=== PATIENT | male | born 1960 | race Caucasian/White ===

== ENCOUNTER 2020-09-17 16:22 | Inpatient (IN) | payer BC, OTHER ==
[~2020-09-17] VITALS: Ht 172.7 cm; Wt 86.4 kg
[~2020-09-17 16:22] MED LIST: ADV50100 IH; ALBU18HF2 IH; DOXY-8 PO; NO HOME MEDS; PRED20TA PO
[2020-09-17 17:01] LABS: BASOPHILS % (AUTO) 0.4 % (0-1); EOSINOPHILS % (AUTO) 0 % (0-6); HEMATOCRIT 42.3 % (42.0-52.0); HEMOGLOBIN 14.4 g/dl (14.0-17.9); LYMPHOCYTES # (AUTO) 0.9 X10'3 (1.1-4.8); LYMPHOCYTES % (AUTO) 19.2 % (21-51); MEAN CORPUSCULAR HEMOGLOBIN 29.4 PG (27.0-31.0); MEAN CORPUSCULAR HGB CONC 34.1 g/dL (33.0-36.5); MEAN CORPUSCULAR VOLUME 86.4 FL (78-98); MEAN PLATELET VOLUME 7.4 FL (7.4-10.4); MONOCYTES # (AUTO) 0.5 X10'3 (0-0.9); MONOCYTES % (AUTO) 11.6 % (2-12); NEUTROPHILS # (AUTO) 3.1 X10'3 (1.8-7.7); NEUTROPHILS % (AUTO) 68.8 % (42-75); PLATELET COUNT 257 X10'3 (140-440); RED CELL DISTRIBUTION WIDTH 12.9 % (11.5-14.5); WHITE BLOOD COUNT 4.5 X10'3 (4.5-11.0)
[2020-09-17 17:16] LABS: ALANINE AMINOTRANSFERASE 37 U/L (12-78); ALBUMIN 3.5 G/DL (3.4-5.0); ALBUMIN/GLOBULIN RATIO 0.8 (1.1-1.5); ALKALINE PHOSPHATASE 73 IU/L (46-116); ANION GAP 5 (8-16); ASPARTATE AMINO TRANSFERASE 50 U/L (10-37); BILIRUBIN,TOTAL 0.3 MG/DL (0.1-1.0); BLOOD UREA NITROGEN 20 MG/DL (7-18); BUN/CREATININE RATIO 20.2 (5.4-32.0); CALCIUM 8.9 MG/DL (8.5-10.1); CHLORIDE 99 MMOL/L (99-107); CREATININE 0.99 MG/DL (0.60-1.10); GLUCOSE 116 MG/DL (70-104); POTASSIUM 3.7 MMOL/L (3.5-5.1); SODIUM 137 MMOL/L (135-145); TOTAL PROTEIN 7.7 G/DL (6.4-8.2); eGFR 77 ML/MIN
[2020-09-17] MEDS ORDERED: normal saline 1000ML IV soln IVB ONE (17:35)
[2020-09-17] MEDS ORDERED: dexamethasone 4mg/ml inj IV SCH (17:50)
[2020-09-17] MEDS ORDERED: dexamethasone 4mg/ml inj IV ONE (17:50)
[2020-09-17] MEDS ORDERED: acetaminophen 325mg tablet PO PRN (18:05)
[2020-09-17] MEDS ORDERED: mag hydrox/Alum hydrox/simeth 30ml oral suspension PO PRN (18:05)
[2020-09-17] MEDS ORDERED: magnesium hydroxide 30ml (MOM) UD suspension PO PRN (18:05)
[2020-09-17] MEDS ORDERED: ALBUTEROL INHALER 1 PUFF/90 MCG INHALER IH PRN (18:05)
[2020-09-17] MEDS ORDERED: ondansetron/PF 4mg/2ml inj IV PRN (18:05)
[2020-09-17 18:06] LABS: C-REACTIVE PROTEIN 9.26 MG/DL (0.0-0.5)
[2020-09-17 18:07] LABS: D-DIMER 0.38 MG/L FEU (0-0.50)
[2020-09-17] MEDS ORDERED: iohexol 350MG/ML 100ml bottle IV ONE (18:09)
[2020-09-17] MEDS ORDERED: BUDE10.2 INH (18:10)
[2020-09-17] MEDS ORDERED: TIOT18CA3 IH (18:11)
[2020-09-17] MEDS ORDERED: REMDESIVIR 100MG inj. 200 MG in normal saline 100ml IV soln 100 ML IV ONE (18:25)
--- NOTE | 2020-09-17 19:52 | NUR ---
Patient in bed, alert and oriented x 3 on nasal cannula. No acute signs of distress. Patient updated on plan of care and admission
[2020-09-17] MEDS: enoxaparin 40mg/0.4ml syringe SUBCUT SCH (19:54)
[2020-09-17] MEDS: Symbicort 160-4.5 Mcg Inhaler IH SCH (20:00)
[2020-09-17] MEDS: ALBUTEROL INHALER 1 PUFF/90 MCG INHALER IH SCH (20:00)
--- NOTE | 2020-09-17 20:06 | NUR ---
Report given to MAYRA Ybarra.
[2020-09-17 20:50] VITALS: BP 117/63
--- NOTE | 2020-09-17 20:50 | NUR ---
Report taken from Denisha NUNEZ in ER.. Patient arrived to the floor on a gurney with Anti-viral running through IV and NC ON with a flow of 8L, which I immediately changed to 6L. Patient brought with him his wallet, glasses, and keys. He demanded that these items stay with him. He also had a white plastic bag with his shirt, jacket, pants, socks and shoes. These items were put in patients assigned closet in room. He is currently in stable condition, will cont.. to monitor.
[2020-09-17 22:00] VITALS: BP 122/68
[2020-09-17] MEDS: dexamethasone inj 6 MG in normal saline 50ml IV soln 50 ML IV SCH (23:46)
[2020-09-18 02:00] VITALS: BP 114/62
[2020-09-18] MEDS: ALBUTEROL INHALER 1 PUFF/90 MCG INHALER IH SCH ×4 (02:08→20:00)
[2020-09-18 06:00] VITALS: BP 109/56
--- NOTE | 2020-09-18 06:24 | NUR ---
Problems reprioritized. Patient report given, questions answered & plan of care reviewed with Patricia NUNEZ.
[2020-09-18 06:47] LABS: BASOPHILS % (AUTO) 0.2 % (0-1); EOSINOPHILS % (AUTO) 0 % (0-6); HEMATOCRIT 35.4 % (42.0-52.0); HEMOGLOBIN 12.1 g/dl (14.0-17.9); LYMPHOCYTES # (AUTO) 0.4 X10'3 (1.1-4.8); LYMPHOCYTES % (AUTO) 18.2 % (21-51); MEAN CORPUSCULAR HEMOGLOBIN 29.4 PG (27.0-31.0); MEAN CORPUSCULAR HGB CONC 34.2 g/dL (33.0-36.5); MEAN PLATELET VOLUME 7.5 FL (7.4-10.4); MONOCYTES # (AUTO) 0.2 X10'3 (0-0.9); MONOCYTES % (AUTO) 6.6 % (2-12); NEUTROPHILS # (AUTO) 1.8 X10'3 (1.8-7.7); PLATELET COUNT 241 X10'3 (140-440); RED BLOOD COUNT 4.11 X10'6 (4.70-6.10); RED CELL DISTRIBUTION WIDTH 13.1 % (11.5-14.5); WHITE BLOOD COUNT 2.3 X10'3 (4.5-11.0)
[2020-09-18 06:58] LABS: ALBUMIN 2.8 G/DL (3.4-5.0); ANION GAP 7 (8-16); BLOOD UREA NITROGEN 21 MG/DL (7-18); BUN/CREATININE RATIO 25.3 (5.4-32.0); CALCIUM 8.8 MG/DL (8.5-10.1); CHLORIDE 103 MMOL/L (99-107); CREATININE 0.83 MG/DL (0.60-1.10); GLUCOSE 133 MG/DL (70-104); POTASSIUM 4.2 MMOL/L (3.5-5.1); SODIUM 139 MMOL/L (135-145); TOTAL CARBON DIOXIDE 29.2 MMOL/L (24-32); eGFR > 90 ML/MIN
[2020-09-18 07:25] LABS: TOTAL CELLS COUNTED 100
[2020-09-18 07:26] LABS: MICROCYTOSIS 1+; PLATELET ESTIMATE NORMAL
[2020-09-18] MEDS: dexamethasone inj 6 MG in normal saline 50ml IV soln 50 ML IV SCH ×2 (07:59→20:02)
[2020-09-18] MEDS: enoxaparin 40mg/0.4ml syringe SUBCUT SCH ×2 (08:00→20:00)
[2020-09-18 11:00] VITALS: BP 114/62
[2020-09-18 15:00] VITALS: BP 127/72
--- NOTE | 2020-09-18 18:00 | NUR ---
Patient in room PCU 3020. I have received report from Patricia NUNEZ and had the opportunity to ask questions and assume patient care. Pt resting in bed. NAD noted, RR even and unlabored. Safety precautions in place, will continue to monitor.
[2020-09-18 19:58] VITALS: BP 132/77
[2020-09-18] MEDS: REMDESIVIR 100MG inj. 100 MG in normal saline 100ml IV soln 100 ML IV SCH (20:02)
[2020-09-18 23:40] VITALS: BP 135/71
--- NOTE | 2020-09-19 | NUR ---
Pt continues to rest in bed. No concerns voiced. Will continue to monitor.
[2020-09-19 02:00] VITALS: BP 138/83
[2020-09-19] MEDS: ALBUTEROL INHALER 1 PUFF/90 MCG INHALER IH SCH ×4 (02:48→19:48)
--- NOTE | 2020-09-19 06:31 | NUR ---
Problems reprioritized. Patient report given, questions answered & plan of care reviewed with Patricia NUNEZ.
[2020-09-19 06:59] LABS: BASOPHILS % (AUTO) 0.2 % (0-1); EOSINOPHILS % (AUTO) 0 % (0-6); HEMATOCRIT 39.2 % (42.0-52.0); HEMOGLOBIN 13.1 g/dl (14.0-17.9); LYMPHOCYTES # (AUTO) 0.7 X10'3 (1.1-4.8); LYMPHOCYTES % (AUTO) 8.5 % (21-51); MEAN CORPUSCULAR HEMOGLOBIN 29.2 PG (27.0-31.0); MEAN CORPUSCULAR HGB CONC 33.4 g/dL (33.0-36.5); MEAN CORPUSCULAR VOLUME 87.4 FL (78-98); MEAN PLATELET VOLUME 7.6 FL (7.4-10.4); MONOCYTES # (AUTO) 0.7 X10'3 (0-0.9); MONOCYTES % (AUTO) 8.4 % (2-12); NEUTROPHILS # (AUTO) 6.8 X10'3 (1.8-7.7); NEUTROPHILS % (AUTO) 82.9 % (42-75); PLATELET COUNT 294 X10'3 (140-440); RED BLOOD COUNT 4.49 X10'6 (4.70-6.10); RED CELL DISTRIBUTION WIDTH 12.9 % (11.5-14.5); WHITE BLOOD COUNT 8.2 X10'3 (4.5-11.0)
[2020-09-19 07:30] VITALS: BP 133/83
[2020-09-19 07:38] LABS: ALBUMIN 2.8 G/DL (3.4-5.0); ANION GAP 4 (8-16); BLOOD UREA NITROGEN 22 MG/DL (7-18); C-REACTIVE PROTEIN 4.43 MG/DL (0.0-0.5); CHLORIDE 103 MMOL/L (99-107); CREATININE 0.71 MG/DL (0.60-1.10); GLUCOSE 153 MG/DL (70-104); POTASSIUM 4.3 MMOL/L (3.5-5.1); SODIUM 140 MMOL/L (135-145); TOTAL CARBON DIOXIDE 32.6 MMOL/L (24-32); eGFR > 90 ML/MIN
[2020-09-19] MEDS: dexamethasone inj 6 MG in normal saline 50ml IV soln 50 ML IV SCH ×2 (09:47→19:24)
[2020-09-19] MEDS: enoxaparin 40mg/0.4ml syringe SUBCUT SCH ×2 (09:47→19:24)
[2020-09-19 18:30] VITALS: BP 148/80
[2020-09-19] MEDS: REMDESIVIR 100MG inj. 100 MG in normal saline 100ml IV soln 100 ML IV SCH (19:24)
[2020-09-19 21:33] VITALS: BP 134/80
[2020-09-20 02:00] VITALS: BP 150/79
[2020-09-20] MEDS: ALBUTEROL INHALER 1 PUFF/90 MCG INHALER IH SCH ×4 (02:47→20:16)
--- NOTE | 2020-09-20 06:19 | NUR ---
Problems reprioritized. Patient report given, questions answered & plan of care reviewed with Palma. Lowered pt O2 to 5L. Pt now saturating @ 99%. Will continue to assess
[2020-09-20 06:33] LABS: BASOPHILS % (AUTO) 0.2 % (0-1); EOSINOPHILS % (AUTO) 0 % (0-6); HEMOGLOBIN 12.6 g/dl (14.0-17.9); LYMPHOCYTES # (AUTO) 0.5 X10'3 (1.1-4.8); LYMPHOCYTES % (AUTO) 4.5 % (21-51); MEAN CORPUSCULAR HEMOGLOBIN 28.5 PG (27.0-31.0); MEAN CORPUSCULAR VOLUME 86.4 FL (78-98); MEAN PLATELET VOLUME 7.4 FL (7.4-10.4); MONOCYTES % (AUTO) 8.5 % (2-12); NEUTROPHILS % (AUTO) 86.8 % (42-75); PLATELET COUNT 320 X10'3 (140-440); RED CELL DISTRIBUTION WIDTH 13.1 % (11.5-14.5); WHITE BLOOD COUNT 11.5 X10'3 (4.5-11.0)
[2020-09-20 06:44] LABS: ALBUMIN 2.7 G/DL (3.4-5.0); ANION GAP 5 (8-16); BLOOD UREA NITROGEN 26 MG/DL (7-18); BUN/CREATININE RATIO 36.1 (5.4-32.0); CHLORIDE 106 MMOL/L (99-107); CREATININE 0.72 MG/DL (0.60-1.10); GLUCOSE 159 MG/DL (70-104); POTASSIUM 4.9 MMOL/L (3.5-5.1); SODIUM 144 MMOL/L (135-145); TOTAL CARBON DIOXIDE 33.4 MMOL/L (24-32); eGFR > 90 ML/MIN
[2020-09-20 07:00] VITALS: BP 155/91
[2020-09-20] MEDS: Tiotropium Bromide (Spiriva) IH SCH (08:00)
[2020-09-20] MEDS: enoxaparin 40mg/0.4ml syringe SUBCUT SCH (08:40)
[2020-09-20] MEDS: dexamethasone inj 6 MG in normal saline 50ml IV soln 50 ML IV SCH ×2 (08:41→19:38)
[2020-09-20 11:00] VITALS: BP 149/88
[2020-09-20 13:37] LABS: D-DIMER 0.24 MG/L FEU (0-0.50)
[2020-09-20 15:00] VITALS: BP 150/77
--- NOTE | 2020-09-20 15:40 | NUR ---
PAGER ID: [phone] MESSAGE: [phone], Tanmay Hernandez- patient unable to have Symbicort and Spiriva inhalers brought in from home, can we d/c orders?
[2020-09-20 18:00] VITALS: BP 139/73
--- NOTE | 2020-09-20 18:00 | NUR ---
Patient in room PCU 3020. I have received report from Palma NUNEZ and had the opportunity to ask questions and assume patient care. Pt sitting in bed. NAD noted, RR even and unlabored on 4L O2 NC. Safety precautions in place. Will continue to monitor.
[2020-09-20] MEDS: REMDESIVIR 100MG inj. 100 MG in normal saline 100ml IV soln 100 ML IV SCH (19:38)
[2020-09-20] MEDS: zolpidem 5mg tablet PO PRN (19:39)
[2020-09-20] MEDS: Symbicort 160-4.5 Mcg Inhaler IH SCH (20:00)
[2020-09-20 21:48] VITALS: BP 139/77
--- NOTE | 2020-09-21 | NUR ---
Patient continues to rest in bed. NAD noted, RR even and unlabored on 5L NC. Will continue to monitor.
[2020-09-21 02:00] VITALS: BP 139/77
--- NOTE | 2020-09-21 03:06 | NUR ---
Called to patient room, O2 saturation was 83%. Patient was in bathroom. Increased O2 saturation to 6L. Paged respiratory for a breathing treatment for patient. Patient saturation now 90% on 6 L. Awaiting return call
[2020-09-21] MEDS: ALBUTEROL INHALER 1 PUFF/90 MCG INHALER IH SCH ×4 (03:12→21:16)
[2020-09-21 06:00] VITALS: BP 153/92
--- NOTE | 2020-09-21 06:22 | NUR ---
Problems reprioritized. Patient report given, questions answered & plan of care reviewed with Palma NUNEZ.
[2020-09-21] MEDS: Symbicort 160-4.5 Mcg Inhaler IH SCH (08:00)
[2020-09-21] MEDS: Tiotropium Bromide (Spiriva) IH SCH (08:00)
[2020-09-21] MEDS: dexamethasone inj 6 MG in normal saline 50ml IV soln 50 ML IV SCH ×2 (09:18→19:20)
[2020-09-21] MEDS: enoxaparin 40mg/0.4ml syringe SUBCUT SCH (09:18)
[2020-09-21 11:49] VITALS: BP 155/88
[2020-09-21 15:00] VITALS: BP 150/72
--- NOTE | 2020-09-21 15:40 | NUR ---
Initial: Pt presented to ED with SOB and general weakness. Admit with acute respiratory failure and SIRS d/t covid19 infection per MD notes. Pt on nasal cannula per EMR. Pt fluctuating PO intake of approximately 50% of meals, not meeting nutrient needs. Pt fluctuating PO likely r/t to difficulty breathing. Pt may benefit from receiving smoothie BID LD to encourage PO intake, d/w dietary. Pt last BM 09/20, receiving bowel care as needed. Will continue to monitor. Recs: 1. Continue hearth healthy diet 2. [place] Smoothie BID LD,encourage PO 2. Bowel care as needed 3. Scaled weight per rx Addendum: 09/21/20 at 15[address] SO[address]ES[address]IC INTERN RD Amended: Links added. Addendum: 09/21/20 at [address] RD agree with manager internal note
[2020-09-21 18:00] VITALS: BP 137/81
--- NOTE | 2020-09-21 18:00 | NUR ---
Patient in room PCU 3020. I have received report from Palma NUNEZ and had the opportunity to ask questions and assume patient care. Pt rest in bed. NAD noted, RR even and unlabored. Will continue to monitor.
[2020-09-21] MEDS: REMDESIVIR 100MG inj. 100 MG in normal saline 100ml IV soln 100 ML IV SCH (19:20)
[2020-09-21 22:00] VITALS: BP 145/86
--- NOTE | 2020-09-22 | NUR ---
Pt esting in bed. NAD noted, RR even and unlabored. Will continue to monitor.
[2020-09-22 02:33] VITALS: BP 123/77
[2020-09-22] MEDS: ALBUTEROL INHALER 1 PUFF/90 MCG INHALER IH SCH ×5 (03:16→20:53)
[2020-09-22 06:00] VITALS: BP 149/83
--- NOTE | 2020-09-22 06:23 | NUR ---
Problems reprioritized. Patient report given, questions answered & plan of care reviewed with Palma NUNEZ.
[2020-09-22 07:00] VITALS: BP 149/83
[2020-09-22 07:32] LABS: BASOPHILS # (AUTO) 0.1 X10'3 (0-0.2); BASOPHILS % (AUTO) 0.7 % (0-1); EOSINOPHILS % (AUTO) 0 % (0-6); HEMATOCRIT 41.3 % (42.0-52.0); HEMOGLOBIN 13.6 g/dl (14.0-17.9); LYMPHOCYTES # (AUTO) 0.6 X10'3 (1.1-4.8); LYMPHOCYTES % (AUTO) 4.8 % (21-51); MEAN CORPUSCULAR HEMOGLOBIN 28.7 PG (27.0-31.0); MEAN CORPUSCULAR VOLUME 86.9 FL (78-98); MEAN PLATELET VOLUME 7.8 FL (7.4-10.4); MONOCYTES # (AUTO) 1.1 X10'3 (0-0.9); MONOCYTES % (AUTO) 8.7 % (2-12); NEUTROPHILS # (AUTO) 10.8 X10'3 (1.8-7.7); NEUTROPHILS % (AUTO) 85.8 % (42-75); PLATELET COUNT 306 X10'3 (140-440); RED BLOOD COUNT 4.75 X10'6 (4.70-6.10); RED CELL DISTRIBUTION WIDTH 12.8 % (11.5-14.5); WHITE BLOOD COUNT 12.5 X10'3 (4.5-11.0)
[2020-09-22 07:39] LABS: D-DIMER 0.66 MG/L FEU (0-0.50)
[2020-09-22 08:00] LABS: ALBUMIN 2.8 G/DL (3.4-5.0); ANION GAP 5 (8-16); BLOOD UREA NITROGEN 17 MG/DL (7-18); C-REACTIVE PROTEIN 2.57 MG/DL (0.0-0.5); CALCIUM 8.9 MG/DL (8.5-10.1); CHLORIDE 100 MMOL/L (99-107); GLUCOSE 129 MG/DL (70-104); POTASSIUM 4.7 MMOL/L (3.5-5.1); SODIUM 140 MMOL/L (135-145); TOTAL CARBON DIOXIDE 35.2 MMOL/L (24-32); eGFR > 90 ML/MIN
[2020-09-22] MEDS: dexamethasone inj 6 MG in normal saline 50ml IV soln 50 ML IV SCH (08:07)
[2020-09-22] MEDS: enoxaparin 40mg/0.4ml syringe SUBCUT SCH (08:08)
[2020-09-22 11:00] VITALS: BP 150/76
[2020-09-22] MEDS: azithromycin/NS 500mg/250ml 250 ML IV SCH (12:13)
[2020-09-22 15:00] VITALS: BP 123/77
[2020-09-22] MEDS: methylPREDNISolone sod succ 125mg/2ml vial IV SCH (16:12)
[2020-09-22 18:00] VITALS: BP 132/76
[2020-09-23] MEDS: methylPREDNISolone sod succ 125mg/2ml vial IV SCH ×3 (00:56→16:46)
[2020-09-23 02:00] VITALS: BP 147/84
[2020-09-23] MEDS: ALBUTEROL INHALER 1 PUFF/90 MCG INHALER IH SCH ×4 (02:47→19:41)
[2020-09-23 07:00] VITALS: BP 139/85
[2020-09-23] MEDS: enoxaparin 40mg/0.4ml syringe SUBCUT SCH (07:48)
[2020-09-23] MEDS: azithromycin/NS 500mg/250ml 250 ML IV SCH (07:49)
[2020-09-23 08:57] LABS: D-DIMER 0.33 MG/L FEU (0-0.50)
[2020-09-23 09:07] LABS: C-REACTIVE PROTEIN 1.43 MG/DL (0.0-0.5)
[2020-09-23 09:18] LABS: BASOPHILS % (AUTO) 0.1 % (0-1); EOSINOPHILS % (AUTO) 0 % (0-6); HEMATOCRIT 40.3 % (42.0-52.0); HEMOGLOBIN 13.1 g/dl (14.0-17.9); LYMPHOCYTES # (AUTO) 0.4 X10'3 (1.1-4.8); LYMPHOCYTES % (AUTO) 4.1 % (21-51); MEAN CORPUSCULAR HEMOGLOBIN 28.9 PG (27.0-31.0); MEAN CORPUSCULAR HGB CONC 32.6 g/dL (33.0-36.5); MEAN CORPUSCULAR VOLUME 88.6 FL (78-98); MEAN PLATELET VOLUME 7.8 FL (7.4-10.4); MONOCYTES # (AUTO) 0.7 X10'3 (0-0.9); MONOCYTES % (AUTO) 6.3 % (2-12); NEUTROPHILS # (AUTO) 9.7 X10'3 (1.8-7.7); NEUTROPHILS % (AUTO) 89.5 % (42-75); PLATELET COUNT 373 X10'3 (140-440); RED BLOOD COUNT 4.55 X10'6 (4.70-6.10); RED CELL DISTRIBUTION WIDTH 13.1 % (11.5-14.5); WHITE BLOOD COUNT 10.8 X10'3 (4.5-11.0)
[2020-09-23 09:35] LABS: ALBUMIN 2.6 G/DL (3.4-5.0); ANION GAP 0 (8-16); BLOOD UREA NITROGEN 14 MG/DL (7-18); BUN/CREATININE RATIO 23.7 (5.4-32.0); CHLORIDE 102 MMOL/L (99-107); CREATININE 0.59 MG/DL (0.60-1.10); GLUCOSE 158 MG/DL (70-104); POTASSIUM 4.8 MMOL/L (3.5-5.1); SODIUM 140 MMOL/L (135-145); TOTAL CARBON DIOXIDE 37.7 MMOL/L (24-32); eGFR > 90 ML/MIN
[2020-09-23 11:30] VITALS: BP 133/88
[2020-09-23 15:00] VITALS: BP 136/84
[2020-09-23 18:00] VITALS: BP 138/80
[2020-09-23] MEDS: lactobacillus rhamnosus 10,000 MMU CELLS/CAPSULE PO SCH (20:14)
[2020-09-23 22:00] VITALS: BP 140/86
[2020-09-24] MEDS: methylPREDNISolone sod succ 125mg/2ml vial IV SCH ×3 (01:06→15:37)
[2020-09-24 02:00] VITALS: BP 138/82
[2020-09-24] MEDS: ALBUTEROL INHALER 1 PUFF/90 MCG INHALER IH SCH ×4 (03:22→18:54)
--- NOTE | 2020-09-24 06:31 | NUR ---
Problems reprioritized. Patient report given, questions answered & plan of care reviewed with EMETERIOIA.
[2020-09-24 07:14] LABS: D-DIMER 0.31 MG/L FEU (0-0.50)
[2020-09-24] MEDS: enoxaparin 40mg/0.4ml syringe SUBCUT SCH (08:22)
[2020-09-24] MEDS: azithromycin/NS 500mg/250ml 250 ML IV SCH (08:22)
[2020-09-24] MEDS: lactobacillus rhamnosus 10,000 MMU CELLS/CAPSULE PO SCH ×2 (08:22→18:54)
[2020-09-24 11:20] VITALS: BP 115/75
--- NOTE | 2020-09-24 14:54 | NUR ---
Reassessment: Patient's PO intake fluctuates though appears to be improving. Average PO intake is 80% over the last five meals which is significantly improved from previous 50% average PO intake. [facility] 09/22. No further nutrition intervention implemented at this time given improving PO intake. Will continue to follow closely and make recommendations as appropriate. Recs: 1. Continue heart healthy diet 2. [place] smoothie BIDLD, encourage PO 2. Bowel care as needed 3. Scaled weight per rx Addendum: 09/24/20 at [address] Amended: Links added.
[2020-09-24 16:21] VITALS: BP 108/83
--- NOTE | 2020-09-24 18:35 | NUR ---
Patient in room PCU 3020. I have received report from Delmy NUNEZ and had the opportunity to ask questions and assume patient care.
[2020-09-24 19:00] VITALS: BP 141/83
--- NOTE | 2020-09-24 19:31 | NUR ---
Notified Dr. Vásquez of patients dry cough. Cough syrup ordered per .
[2020-09-24] MEDS: zolpidem 5mg tablet PO PRN (20:44)
[2020-09-24] MEDS: guaiFENesin/codeine phos 10ml UD oral syrup PO PRN (20:44)
[2020-09-24 22:34] VITALS: BP 116/60
[2020-09-25] MEDS: methylPREDNISolone sod succ 125mg/2ml vial IV SCH ×3 (00:55→15:42)
[2020-09-25] MEDS: ALBUTEROL INHALER 1 PUFF/90 MCG INHALER IH SCH ×4 (00:55→15:06)
[2020-09-25 01:00] VITALS: BP 144/83
--- NOTE | 2020-09-25 06:08 | NUR ---
Problems reprioritized. Patient report given, questions answered & plan of care reviewed with Delmy NUNEZ.
[2020-09-25 06:42] LABS: D-DIMER 0.41 MG/L FEU (0-0.50)
[2020-09-25 07:00] VITALS: BP 108/53
[2020-09-25] MEDS: azithromycin/NS 500mg/250ml 250 ML IV SCH (08:02)
[2020-09-25] MEDS: enoxaparin 40mg/0.4ml syringe SUBCUT SCH (08:03)
[2020-09-25] MEDS: lactobacillus rhamnosus 10,000 MMU CELLS/CAPSULE PO SCH ×2 (08:03→19:27)
[2020-09-25] MEDS: guaiFENesin/codeine phos 10ml UD oral syrup PO PRN ×2 (15:51→19:26)
[2020-09-25 16:13] VITALS: BP 133/83
[2020-09-25 18:00] VITALS: BP 148/83
--- NOTE | 2020-09-25 18:14 | NUR ---
Patient in room PCU 3020. I have received report from nasima and had the opportunity to ask questions and assume patient care.
[2020-09-25] MEDS: zolpidem 5mg tablet PO PRN (21:57)
[2020-09-25 22:00] VITALS: BP 147/86
[2020-09-26] MEDS: methylPREDNISolone sod succ 125mg/2ml vial IV SCH ×2 (00:52→07:55)
[2020-09-26] MEDS: ALBUTEROL INHALER 1 PUFF/90 MCG INHALER IH SCH ×2 (00:57→08:10)
[2020-09-26 01:10] VITALS: BP 116/72
[2020-09-26 06:00] VITALS: BP 121/83
--- NOTE | 2020-09-26 06:08 | NUR ---
Problems reprioritized. Patient report given, questions answered & plan of care reviewed with brii.
--- NOTE | 2020-09-26 06:34 | NUR ---
Patient in room PCU 3020. I have received report from Kalin NUNEZ and had the opportunity to ask questions and assume patient care.
[2020-09-26] MEDS: lactobacillus rhamnosus 10,000 MMU CELLS/CAPSULE PO SCH (07:55)
[2020-09-26] MEDS: enoxaparin 40mg/0.4ml syringe SUBCUT SCH (07:56)
[2020-09-26] MEDS ORDERED: azithromycin 250mg tablet PO SCH (08:00)
--- NOTE | 2020-09-26 11:23 | NUR ---
/O2 Sat at rest on room air: 90% If below 89%: Recovery O2 Sat at rest on ___LPM:___%: 2.0% via nasal cannula No further documentation is necessary. If O2 Sat did not drop below 89% on room air,ambulate patient on room air. O2 Sat while ambulating on room air: 83% Recovery O2 Sat while ambulating on 2.0 LPM: 91% No further documentation is necessary. If patient does not drop below 89% while ambulating, he/she does not qualify for home O2.
--- NOTE | 2020-09-26 12:24 | NUR ---
RT notified by Clarissa NUNEZ about ABG ordered on 09/23 and RT not notified of order so asked to attempt draw today on 09/26/20, pt allowed one stick only and stated he didn't want another attempt as he was going home today. Notified Clarissa NUNEZ of pts refusal and she stated "pts can refused if they want too". Addendum: 09/26/20 at 1226 by Marsha Smith RT Amended: Links added.
--- NOTE | 2020-09-26 13:39 | NUR ---
Paged Dr. Ceballos regarding discharge. PAGER ID: [phone] MESSAGE: [phone] Tanmay Hernandez. Patient awaiting discharge orders. Thank you. AIXA Romo RN.
[2020-09-26] MEDS ORDERED: ALBU8.5H8 IH (14:03)
[2020-09-26] MEDS ORDERED: APIX2.5T PO (14:03)
[2020-09-26] MEDS ORDERED: PRED10TA PO (14:03)
--- NOTE | 2020-09-26 16:06 | NUR ---
Patient is stable for discharge per MD orders. All discharge instructions reviewed with patient and all questions answered. New prescriptions sent electronically. PIV discontinued cannula intact. monitoring tech discontinued. Belongings collected and sent with patient. Wheeled to lobby by nursing staff. Went home in private vehicle.
[2020-09-27] MEDS ORDERED: predniSONE 20 mg tablet PO SCH (08:00)
--- NOTE | 2020-09-27 15:44 | NUR ---
CASE MANAGEMENT DISCHARGE FOLLOW UP: Spoke with PT via telephone. Reports that he is doing well; denies CP, SOD/dyspnea, fever/chills. States that he got a pulse oximeter from [employer] but that it is a "long white tube" and he does not know how to use it, states that there is not anyone who can pick one up for him. States that he is wearing O2 @2L/min via NC and that he is comfortable. Verbalizes understanding of s/sx requiring further evaluation/emergent assistance, will get help if he develops any difficulty breathing/SOB. Verbalizes understanding of new and current medications. Verbalizes compliance with MD discharge instructions. Verbalizes understanding of the importance in making/keeping follow-up appointments, states that he thinks he should get a tube bender hand, advised that he will need to get a referral from his PCP, pt states that he will. States no further questions/concerns at this time.
== END 2020-09-26 16:06 | disposition home or self-care (01) | DRG 177 ==
LOC: ER 16:23 → ED HOLD 18:03 → PCU 3S 20:42
PROVIDERS: ADMIT Family Medicine; ATTEND Family Medicine
PROC: 5A0935A Assistance with Respiratory Ventilation, Less than 24 Consecutive Hours, High Flow/Velocity Cannula (ICD-10-PCS; principal; 2020-09-17)
PROC: XW033E5 Introduction of Remdesivir Anti-infective into Peripheral Vein, Percutaneous Approach, New Technology Group 5 (ICD-10-PCS; 2020-09-17)
PROC: B32T1ZZ Computerized Tomography (CT Scan) of Left Pulmonary Artery using Low Osmolar Contrast (ICD-10-PCS; 2020-09-17)
PROC: B3201ZZ Computerized Tomography (CT Scan) of Thoracic Aorta using Low Osmolar Contrast (ICD-10-PCS; 2020-09-17)
PROC: B32S1ZZ Computerized Tomography (CT Scan) of Right Pulmonary Artery using Low Osmolar Contrast (ICD-10-PCS; 2020-09-17)
PROC: 5A0935A Assistance with Respiratory Ventilation, Less than 24 Consecutive Hours, High Flow/Velocity Cannula (ICD-10-PCS; 2020-09-25)
DX: U07.1 COVID-19 (principal); J96.01 Acute respiratory failure with hypoxia; J44.1 Chronic obstructive pulmonary disease with (acute) exacerbation; Z60.2 Problems related to living alone; R00.0 Tachycardia, unspecified; R19.7 Diarrhea, unspecified; Z87.891 Personal history of nicotine dependence
CPT/HCPCS: 36415; 71045; 71275; 80048; 80053; 83605; 83880; 84145; 84484; 85007; 85025; 85379; 85610; 86140; 87040; 87081; 87502; 87503; 87635; 93005; 94640; 94667; 94760; 96374; 99285; C9803; G0378; J0456; J1100; J1650; J2930; J7030; Q9967